=== PATIENT | female | born 1940 | race Caucasian/White ===

== ENCOUNTER 2020-03-05 13:32 | Outpatient (CLI) | payer MEDICARE, SELFPAY ==
--- NOTE | 2020-03-05 13:40 | MM_ITS ---
WS: [id number] BILATERAL DIGITAL SCREENING MAMMOGRAPHY WITH CAD CLINICAL INFORMATION: SCREENING HISTORY: Screening mammogram. No current complaints. COMPARISON: TECHNIQUE: Bilateral CC and MLO views. FINDINGS: Scattered fibroglandular densities bilaterally. No suspicious focal mass, asymmetry, calcifications, or architectural distortion. No evidence of malignancy. Vascular calcification. Stable asymmetric yesy ast tissue upper outer right breast. MM/[id number] IMPRESSION: BI-RADS: 2-Benign FOLLOW UP: 1 Year Follow-up Recommend return to annual screening mammography.
== END 2020-03-05 13:33 | disposition home or self-care (01) ==
LOC: RADSHAW 13:36
PROVIDERS: PCP Family Medicine; Visit Provider Family Medicine
DX: Z12.31 Encounter for screening mammogram for malignant neoplasm of breast (principal)
CPT/HCPCS: 77067

== ENCOUNTER 2020-10-16 09:35 | Outpatient (CLI) | payer MEDICARE, SELFPAY ==
--- NOTE | 2020-10-16 09:45 | XR_ITS ---
WS: [id number] CHEST 2 VIEWS HISTORY: ACUTE LOWER RESPIRATORY TRACT INFECTION COMPARISON: 01/26/2019 Lungs: Hyperinflated lungs. No pneumonia. Normal pulmonary vasculature. No pleural effusions. Minimal chronic appearing atelectasis at the LEFT lung base. Cardiac size: Normal. Mediastinum/Aorta: Mild atherosclerosis aorta. Bones: Prior RIGHT humeral head replacement. Severe degenerative changes at the LEFT glenohumeral alka nt. Thoracolumbar scoliosis and osteopenia. XR/XR chest 2V* [id number] IMPRESSION: Chronic emphysema with no pneumonia. Mild subsegmental atelectasis LEFT lung base.
== END 2020-10-16 09:36 | disposition home or self-care (01) ==
PROVIDERS: PCP Family Medicine; Visit Provider Family Medicine
DX: J22 Unspecified acute lower respiratory infection (principal); J43.9 Emphysema, unspecified; J98.11 Atelectasis
CPT/HCPCS: 71046

== ENCOUNTER 2021-03-12 08:12 | Outpatient (CLI) | payer MEDICARE, SELFPAY ==
--- NOTE | 2021-03-12 08:18 | MM_ITS ---
WS: [id number] BILATERAL SCREENING DIGITAL MAMMOGRAM WITH CAD HISTORY: SCREENING COMPARISON: 03/05/2020, 08/08/2018 and 06/21/2017 Bilateral CC and MLO views submitted. Computer aided detection analyzed. Breast composition: There are scattered areas of fibroglandular density. No suspicious masses, microc alcifications or architectural distortion. Scattered asymmetries in the RIGHT subareolar and RIGHT up per outer quadrant and in the LEFT subareolar locations. Stable over multiple prior years. MM/[place] [id number] IMPRESSION: BI-RADS: 2-Benign FOLLOW UP: 1 Year Follow-up
== END 2021-03-12 08:13 | disposition home or self-care (01) ==
LOC: RADSHAW 08:16
PROVIDERS: PCP Family Medicine; Visit Provider Family Medicine
DX: Z12.31 Encounter for screening mammogram for malignant neoplasm of breast (principal)
CPT/HCPCS: 77067

== ENCOUNTER → 2021-11-10 08:17 | Outpatient (BNVA) | payer MEDICARE, SELFPAY | PROVIDERS: PCP Family Medicine; Visit Provider Family Medicine | DX: R73.9 Hyperglycemia, unspecified (principal); J84.9 Interstitial pulmonary disease, unspecified; R06.2 Wheezing; M10.9 Gout, unspecified; E03.9 Hypothyroidism, unspecified | CPT/HCPCS: 80053; 80061; 83036; 84443; 85025 ==

== ENCOUNTER 2022-04-12 13:16 | Outpatient (CLI) | payer MEDICARE, SELFPAY ==
--- NOTE | 2022-04-12 13:24 | MM_ITS ---
WS: [id number] VIEWS: MLO and CC views both breasts. 3D digital tomosynthesis is also included in this exam. Comparison made with prior exam of 04/09/2015, 04/22/2016, 06/21/2017, 03/05/2020, 03/12/2021.. Findings: There was no sign of mass, architectural distortion or suspicious calcification in either breast. Sc attered fibroglandular densities MM/[place] [id number] Impression: BI-RADS: 2-Benign FOLLOW-UP: 1 Year Follow-up This mammogram was also analyzed by the Computer Aided Detection System R2 Imag e Quick Print Operator.
== END 2022-04-12 13:17 | disposition home or self-care (01) ==
LOC: RAD 13:17
PROVIDERS: PCP Family Medicine; Visit Provider Family Medicine
DX: Z12.31 Encounter for screening mammogram for malignant neoplasm of breast (principal)
CPT/HCPCS: 77063; 77067

== ENCOUNTER → 2022-05-21 08:04 | Outpatient (BNVA) | payer BC, SELFPAY | PROVIDERS: PCP Family Medicine; Visit Provider Family Medicine | DX: Z00.00 Encounter for general adult medical examination without abnormal findings (principal); E03.9 Hypothyroidism, unspecified | CPT/HCPCS: 80053; 80061; 83036; 84443; 85025 ==

== ENCOUNTER → 2022-08-26 10:52 | Outpatient (BNVA) | payer BC, SELFPAY | PROVIDERS: PCP Family Medicine; Visit Provider Family Medicine | DX: E03.9 Hypothyroidism, unspecified (principal); D64.9 Anemia, unspecified; E55.9 Vitamin D deficiency, unspecified | CPT/HCPCS: 82306; 84443; 85025 ==

== ENCOUNTER 2023-01-12 05:58 | Day surgery (SDC) | payer MEDICARE, SELFPAY ==
[2023-01-10 13:40] VITALS: BMI 22.3
[2023-01-12 06:32] VITALS: BP 144/69; PULSE 67; RESP 18; TEMP 36.5; O2SAT 95; BMI 22.3
[2023-01-12] MEDS: sodium chloride 0.9% 1,000 ML 30 ML IV (06:39)
--- NOTE | 2023-01-12 06:51 | P.ANESASSM_ITS ---
Pre-Anesthetic Assessment Height/Weight: Height 1.63 m Weight 58.967 kg Temp Pulse Resp BP Pulse Ox O2 Del Method 97.7 F 67 18 144/69 95 Room Air 01/12/23 06:32 01/12/23 06:32 01/12/23 06:32 01/12/23 06:32 01/12/23 06:32 01/12/23 06:32 Preop Diagnosis: Family history of malignant neoplasm Operation Date: 01/12/23 07:15 Proposed Procedures p Colonoscopy 39475,Z80.0,Z86.010(Not Applicable) - Alex Fleming DO Familial anesthetic complications: none Was Beta Bowen taken within 24 hours: N/A Was Clonidine taken within 24 hours: N/A Last intake: Intake Last Liquid Date 01/11/23 Last Liquid Time 21:00 Last Solid Date 01/10/23 Last Solid Time 17:00 Social No alcohol and No tobacco Exam alert, oriented x 3, clear to auscultation bilaterally and regular rate & rhythm Airway Submandibular: within normal limits Cervical ROM: within normal limits Mallampati: Class II Dentition: full Pulmonary Shortness of Breath uses inhaler denies asthma or COPD prone to getting pneumonia per patient. CV/HEM None reported None reported Hepatic None reported GI Gastroesophageal Reflux Disease (controlled) Metabolic Thyroid Disease [facility] None reported Neuropsych None reported Anesthetic Plan ASA status: 2 Anesthesia: MAC Medications/Allergies Home Medications Medication Instructions Recorded Confirmed Last Taken Type albuterol sulfate 90 mcg/actuation 2 puff inhalation Q6H PRN 06/10/22 01/10/23 01/10/23 Rx aerosol inhaler shortness of breath or wheezing #8.5 grams famotidine 20 mg tablet 20 mg PO PRN PRN .indigestion 08/26/22 01/10/23 1 Week Ago History ~01/03/23 temazepam 30 mg capsule 30 mg PO .qhs PRN sleep #30 caps 08/26/22 01/10/23 Unknown Rx levothyroxine 88 mcg tablet See Rx Instructions .Route 11/01/22 01/10/23 01/10/23 Rx (Synthroid) .COMPLEX #90 tabs coenzyme Q10 100 mg capsule 100 mg PO DAILY 01/10/23 01/10/23 01/10/23 History (CoQ-10) vxdngocw-jwj-zywew ac 400 1 tab PO DAILY 01/10/23 01/10/23 01/10/23 History mcg-calcium carb 500 mg-vit K1 20 mcg tablet (Women's 50 Plus Daily Formula) udbfmna-uwmu-rgmgk-oreg-capryl 1 cap PO DAILY 01/10/23 01/10/23 01/10/23 History Allergies Allergy/AdvReac Type Severity Reaction Status Date / Time sulfur dioxide Allergy Mild rash Verified 12/07/22 09:37 Current Medications Generic Name Dose Route Start Last Admin Trade Name Angusq PRN Reason Stop Dose Admin Sodium Chloride 1,000 mls @ 30 mls/hr 01/12/23 06:15 01/12/23 06:39 Sodium Chloride 0.9% IV 01/13/23 06:14 30 mls/hr .Q24H CAROL Administration PFSH Anesthesia Medical History (Updated 12/07/22 @ 10:42 by Alex Fleming DO) Chronic lung disease Family history of colon cancer History of colon polyps History of colon polyps Hypothyroidism Surgical History (Updated 12/07/22 @ 10:42 by Alex Fleming DO) History of cervical spinal surgery History of hemorrhoidectomy History of right shoulder replacement History of total hysterectomy with bilateral salpingo-oophorectomy (BSO) History of vein stripping Hx of colonoscopy at least 5 years Family History Mother Cancer breast Stroke Sister Cancer colon, breast Brother Diabetes Social History Smoking and tobacco status: never smoked Alcohol intake: never Substance/Drug Use: never Lives independently: Yes Household members: none Marital status: / Number of children: 5 Current occupational status: retired 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
--- NOTE | 2023-01-12 07:22 | P.HP_ITS ---
Providers/Chief Complaint Primary Care Provider: Karuna Rock MD Chief Complaint: Z80.0, Z86.010 History of Present Illness Gisela Colorado is a 82 year old female Review of Systems General: Reports: 10 or more systems reviewed and unremarkable except in HPI and below Medications/Allergies Home Medications Medication Instructions Recorded Confirmed Last Taken Type albuterol sulfate 90 mcg/actuation 2 puff inhalation Q6H PRN 06/10/22 01/10/23 01/10/23 Rx aerosol inhaler shortness of breath or wheezing #8.5 grams famotidine 20 mg tablet 20 mg PO PRN PRN .indigestion 08/26/22 01/10/23 1 Week Ago History ~01/03/23 temazepam 30 mg capsule 30 mg PO .qhs PRN sleep #30 caps 08/26/22 01/10/23 Unknown Rx levothyroxine 88 mcg tablet See Rx Instructions .Route 11/01/22 01/10/23 01/10/23 Rx (Synthroid) .COMPLEX #90 tabs coenzyme Q10 100 mg capsule 100 mg PO DAILY 01/10/23 01/10/23 01/10/23 History (CoQ-10) xfsxfnox-qsx-eurzg ac 400 1 tab PO DAILY 01/10/23 01/10/23 01/10/23 History mcg-calcium carb 500 mg-vit K1 20 mcg tablet (Women's 50 Plus Daily Formula) dbhedek-acem-nbcws-oreg-capryl 1 cap PO DAILY 01/10/23 01/10/23 01/10/23 History Allergies Allergy/AdvReac Type Severity Reaction Status Date / Time sulfur dioxide Allergy Mild rash Verified 12/07/22 09:37 PFSH Acute PFSH: Medical History Chronic lung disease Family history of colon cancer History of colon polyps History of colon polyps Hypothyroidism Surgical History History of cervical spinal surgery History of hemorrhoidectomy History of right shoulder replacement History of total hysterectomy with bilateral salpingo-oophorectomy (BSO) History of vein stripping Hx of colonoscopy at least 5 years Family History Mother Cancer breast Stroke Sister Cancer colon, breast Brother Diabetes Social History Smoking and tobacco status: never smoked Alcohol intake: never Substance/Drug Use: never Lives independently: Yes Household members: none Marital status: / Number of children: 5 Current occupational status: retired 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[employer] 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, 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0 History of colon polyps Z86.010
[2023-01-12 07:53] VITALS: BP 141/100; PULSE 72; RESP 16; TEMP 36.6; O2SAT 97
[2023-01-12 08:10] VITALS: BP 152/89; PULSE 85; RESP 18; O2SAT 95
== END 2023-01-12 08:21 | disposition home or self-care (01) ==
PROVIDERS: PCP Family Medicine; Visit Provider Surgery
PROC: 0DJD8ZZ Inspection of Lower Intestinal Tract, Via Natural or Artificial Opening Endoscopic (ICD-10-PCS; CPT 45378; principal; 2023-01-12 07:15)
DX: Z86.010 Personal history of colon polyps (principal); Z80.0 Family history of malignant neoplasm of digestive organs; D12.8 Benign neoplasm of rectum; K57.30 Diverticulosis of large intestine without perforation or abscess without bleeding; K21.9 Gastro-esophageal reflux disease without esophagitis
CPT/HCPCS: 45385; 88305; J2704; J3490; J7030

== ENCOUNTER → 2023-01-25 11:21 | Outpatient (BNVA) | payer MEDICARE, SELFPAY | PROVIDERS: PCP Family Medicine; Visit Provider Surgery | DX: Z09 Encounter for follow-up examination after completed treatment for conditions other than malignant neoplasm (principal); Z86.010 Personal history of colon polyps; K59.00 Constipation, unspecified | CPT/HCPCS: 99213 ==

== ENCOUNTER → 2023-04-28 08:27 | Outpatient (BNVA) | payer MEDICARE, SELFPAY | PROVIDERS: PCP Family Medicine; Visit Provider Family Medicine | DX: D64.9 Anemia, unspecified (principal); Z00.00 Encounter for general adult medical examination without abnormal findings; E78.5 Hyperlipidemia, unspecified; Z78.0 Asymptomatic menopausal state; M85.80 Other specified disorders of bone density and structure, unspecified site; E03.9 Hypothyroidism, unspecified | CPT/HCPCS: 80053; 80061; 85025 ==

== ENCOUNTER 2023-05-19 13:16 | Outpatient (CLI) | payer MEDICARE, SELFPAY ==
--- NOTE | 2023-05-19 13:20 | XR_ITS ---
WS: [id number] SCREENING DEXA SCAN [facility] CLINICAL INFORMATION: osteopenia f/u COMPARISON: 2013 FINDINGS: The L2-L4 bone mineral density measures 1.35. This corresponds to a T score score of 1.3 and Z score of 3.4. Left femoral neck bone mineral density measures 0.867 g/cm2. This corresponds to a T score of -1.1 an d Z score of 1.2. Right femoral neck bone mineral density measures 0.817 g/cm2. This corresponds to a T score -1.5of an d Z score of 0.8. Mean femoral neck bone mineral density measures 0.842 g/cm2. This corresponds to a T score of -1.3 an d Z score of 1.0. IMPRESSION: Normal bone mineralization lumbar spine. Osteopenia femoral necks. Patient's FRAX calculated 10 year probability for major osteoporotic fracture is 33.8% and osteoporot ic hip fracture is 23.6%. Bone mineral density lumbar spine increased 12.4% Bone mineral density femoral necks decreased -5.4%
--- NOTE | 2023-05-19 13:20 | MM_ITS ---
WS: [id number] BILATERAL SCREENING DIGITAL TOMOSYNTHESIS MAMMOGRAM WITH CAD HISTORY: breast cancer screening COMPARISON: 04/12/2022, 08/08/2018, 03/05/2020 Bilateral CC and MLO views with tomosynthesis and synthetic mammography submitted. Computer aided det ection analyzed. Breast composition: There are scattered areas of fibroglandular density. No suspicious masses, microc alcifications or architectural distortion. Scattered asymmetries upper outer quadrant RIGHT breast an d subareolar LEFT breast. These asymmetries have been present on multiple prior studies. No new suspi cious mass or calcification. IMPRESSION: MM/[place] [id number] BI-RADS: 2-Benign FOLLOW UP: 1 Year Follow-up
== END 2023-05-19 13:17 | disposition home or self-care (01) ==
PROVIDERS: PCP Family Medicine; Visit Provider Family Medicine
DX: Z12.31 Encounter for screening mammogram for malignant neoplasm of breast (principal); R92.323 Mammographic fibroglandular density, bilateral breasts; N64.89 Other specified disorders of breast; Z13.820 Encounter for screening for osteoporosis; Z78.0 Asymptomatic menopausal state; M85.80 Other specified disorders of bone density and structure, unspecified site; M85.852 Other specified disorders of bone density and structure, left thigh; M85.851 Other specified disorders of bone density and structure, right thigh
CPT/HCPCS: 77063; 77067; 77080

== ENCOUNTER 2024-01-16 08:34 | Emergency (ER) | payer MEDICARE, SELFPAY ==
[2024-01-16 08:39] VITALS: PULSE 83; RESP 18; O2SAT 98; BMI 22.3
--- NOTE | 2024-01-16 09:34 | W.ED.WOUNDLC ---
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 She did not lose consciousness she did strike her head she has a large avulsion type flap on the left mandaeism. She is unsure of when her last tetanus shot was. She has no visual changes there is no loss consciousness no nausea vomiting she denies any other injury. Associated symptoms: Denies chills or fever(s) Related Data Home Medications Medication Instructions Recorded Confirmed famotidine 20 mg tablet 20 mg PO PRN PRN .indigestion 08/26/22 01/16/24 coenzyme Q10 100 mg capsule 100 mg PO DAILY 01/10/23 01/16/24 (CoQ-10) rkwvbotn-vih-bbxpb ac 400 1 tab PO DAILY 01/10/23 01/16/24 mcg-calcium carb 500 mg-vit K1 20 mcg tablet (Women's 50 Plus Daily Formula) cirssy (Zingiber officinalis) 250 250 mg PO DAILY 01/16/24 01/16/24 mg capsule red yeast rice 600 mg PO DAILY 01/16/24 01/16/24 turmeric 500 mg-black pepper 1 cap PO DAILY 01/16/24 01/16/24 extract 3 mg capsule Previous Rx's Medication Instructions Recorded temazepam 30 mg capsule 30 mg PO .qhs PRN sleep #30 caps 08/26/22 albuterol sulfate 90 mcg/actuation 2 puff inhalation Q6H PRN 05/24/23 aerosol inhaler shortness of breath or wheezing #8.5 grams alendronate 70 mg tablet (Fosamax) 70 mg PO .once a week #12 tabs 06/06/23 miscellaneous medical supply #1 ea 06/06/23 (Blood Pressure Cuff) levothyroxine 88 mcg tablet See Rx Instructions .Route 11/08/23 .COMPLEX #90 tabs Allergies Allergy/AdvReac Type Severity Reaction Status Date / Time sulfur dioxide Allergy Mild rash Verified 06/06/23 13:33 Review of Systems Const: Denies: fever(s) or chills Card: Denies: chest pain Resp: Denies: dyspnea GI: Denies: abdominal pain : Denies: dysuria, urinary frequency or urinary urgency Musc: Denies: neck pain or back pain Skin/Breast: Denies: rash PFSH ED PFSH: Medical History History of colon polyps Family history of colon cancer History of colon polyps Hypothyroidism Chronic lung disease Surgical History Hx of colonoscopy at least 5 years History of vein stripping History of total hysterectomy with bilateral salpingo-oophorectomy (BSO) History of cervical spinal surgery History of hemorrhoidectomy History of right shoulder replacement Family History Mother Cancer breast Stroke Sister Cancer colon, breast Brother Diabetes Social History Smoking and tobacco/nicotine status: never used tobacco/nicotine Alcohol intake: never Substance/Drug Use: never Lives independently: Yes Household members: none Marital status: / Number of children: 5 Current occupational status: retired 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 No active bleeding at the laceration edge of the orbit intact extraocular moods intact no focal neurologic deficits are noted. Resp: COMMON NORMALS: normal respiratory effort, No retractions, No use of accessory muscles and clear to auscultation bilaterally AUSCULTATION: clear to auscultation bilaterally Cardio: COMMON NORMALS: regular rate, regular rhythm and No murmurs present (Cardio) RATE: regular rate RHYTHM: regular rhythm GI: COMMON NORMALS: Soft to palpation and No hepatosplenomegaly present AUSCULTATION: Yes normoactive bowel sounds PALPATION: Yes Soft to palpation, No Tenderness to palpation present (GI), No Guarding due to palpation present (GI) and Yes No hepatosplenomegaly present Extremity: COMMON NORMALS: normal to inspection, capillary refill normal, no clubbing, cyanosis or edema, no calf tenderness and no pedal edema Neuro: SENSORIUM/ORIENTATION: Yes oriented to person, Yes oriented to place and Yes oriented to time Skin: COMMON NORMALS: no rashes or lesions noted GENERAL SKIN EXAM: no rashes or lesions noted Course Vital Signs: Vital signs: Vital Signs Pulse Rate 73 01/16/24 11:47 Respiratory Rate 16 01/16/24 11:47 Blood Pressure 179/87 01/16/24 11:47 Pulse Oximetry 97 01/16/24 11:47 Oxygen Delivery Me thod Room Air 01/16/24 08:39 MDM - Wound/Laceration Medical Decision Making Facial laceration repaired by midlevel. CT head cervical spine and facial bones all negative for acute fracture tetanus updated Medical Records I reviewed the patient's medical records. Lab Data I reviewed the patient's lab results. 01/16/24 09:51 01/16/24 09:51 Radiology Impressions Cervical Spine CT 01/16/24 09:39 IMPRESSION: 1. No acute fracture or subluxation. 2. Anterior fusion C4 through C7 with spondylotic changes as above. Face CT 01/16/24 09:39 IMPRESSION: No acute fracture. No significant soft tissue hematoma. Head CT 01/16/24 09:39 IMPRESSION: No acute intracranial abnormality. Laboratory Results WBC 6.38 10^3/uL (3.29-11.43) 01/16/24 09:51 RBC 4.25 10^6/uL (3.85-5.65) 01/16/24 09:51 Hgb 12.90 g/dL (11.27-16.99) 01/16/24 09:51 Hct 39.4 % (36-47) 01/16/24 09:51 MCV 92.7 fl (85-98) 01/16/24 09:51 MCH 30.4 pg (27-33) 01/16/24 09:51 MCHC 32.7 g/dL (30-55) 01/16/24 09:51 RDW 13.7 % (12.1-15.1) 01/16/24 09:51 Plt Count 219 10^3/cmm (157-399) 01/16/24 09:51 MPV 10.7 fL (7.4-10.4) H 01/16/24 09:51 Neut % (Auto) 60.6 % 01/16/24 09:51 Lymph % (Auto) 29.9 % 01/16/24 09:51 Angelina % (Auto) 8.3 % 01/16/24 09:51 Eos % (Auto) 0.6 % 01/16/24 09:51 Baso % (Auto) 0.3 % 01/16/24 09:51 Neut # (Auto) 3.86 10^3/uL (1.8-7.7) 01/16/24 09:51 Lymph # (Auto) 1.9 10^3/uL (0.8-4.8) 01/16/24 09:51 Angelina # (Auto) 0.5 10^3/uL (0.2-0.9) 01/16/24 09:51 Eos # (Auto) 0.0 10^3/uL (0.0-0.8) 01/16/24 09:51 Baso # (Auto) 0.0 10^3/uL (0.0-0.1) 01/16/24 09:51 Nucleated RBC % (auto) 0 % 01/16/24 09:51 Nucleated RBCs # 0.0 /100WBC 01/16/24 09:51 Sodium 137 mmol/L (136-145) 01/16/24 09:51 Potassium 4.4 mmol/L (3.5-5.1) 01/16/24 09:51 Chloride 101 mmol/L (98-107) 01/16/24 09:51 Carbon Dioxide 29 mmol/L (22-29) 01/16/24 09:51 Anion Gap 11.4 (5-19) 01/16/24 09:51 BUN 13 mg/dL (8-23) 01/16/24 09:51 Creatinine 0.6 mg/dL (0.5-0.9) 01/16/24 09:51 GFR Calculation Not Reportable 01/16/24 09:51 Glucose 93 mg/dL (65-115) 01/16/24 09:51 Calculated Osmolality 284 mOsm/kg (285-295) L 01/16/24 09:51 Calcium 9.4 mg/dL (8.5-10.5) 01/16/24 09:51 Total Bilirubin 0.4 mg/dL (0.15-1.2) 01/16/24 09:51 AST 31 U/L (0-32) 01/16/24 09:51 ALT 17 U/L (0-33) 01/16/24 09:51 Alkaline Phosphatase 68 U/L (35-105) 01/16/24 09:51 Total Protein 7.1 g/dL (6.6-8.7) 01/16/24 09:51 Albumin 4.2 g/dL (3.5-5.2) 01/16/24 09:51 Globulin 2.9 g/dL (1.3-4.6) 01/16/24 09:51 All radiology interpretation(s) finalized by discharge Discharge Plan Discharge Patient Disposition: Home Clinical Impression: Laceration, Fall Condition: Stable Prescriptions: No Action famotidine 20 mg tablet 20 mg PO PRN PRN (Reason: .indigestion) temazepam 30 mg capsule 30 mg PO .qhs PRN (Reason: sleep) Qty: 30 0RF alendronate [Fosamax] 70 mg tablet 70 mg PO .once a week Qty: 12 3RF (DME) Blood Pressure Cuff Misc See Rx Instructions .Route Qty: 1 0RF Rx Instructions: As directed albuterol sulfate 90 mcg/actuation HFA aerosol inhaler 2 puff inhalation Q6H PRN (Reason: shortness of breath or wheezing) Qty: 8.5 11RF levothyroxine 88 mcg tablet See Rx Instructions .ROUTE .COMPLEX Qty: 90 0RF Dose Instruction: TAKE 1 TABLET BY MOUTH DAILY Rx Instructions: TAKE 1 TABLET BY MOUTH DAILY coenzyme Q10 [CoQ-10] 100 mg Capsule 100 mg PO DAILY Women's 50 Plus Daily Formula 400 mcg-500 mg calcium-20 mcg Tablet 1 tab PO DAILY crissy (Zingiber officinalis) 250 mg Capsule 250 mg PO DAILY turmeric-turmeric ext-pepper 500-3 mg Capsule 1 cap PO DAILY red yeast rice 600 mg PO DAILY Discharge Orders: Discharge ED (Routine); Ordered 01/16/24 Ordered By: Brennen Valentin Referrals: Karuna Rock MD [Primary Care Provider] - Discharge Diet: Usual diet Discharge Activity: Increase activity as tolerated Patient Instructions: Opioid Safety, Pain Management Activity Restrictions/Additional Instructions: Thank you for choosing [facility] for your healthcare needs today. It is very important that you follow up as instructed or that you return to the Emergency Department should you have concerns or if your condition changes or worsens in any way. You were seen in the emergency room with complaints of a laceration after a fall scans of your head and neck did not show any acute fracture or bleeding. Your tetanus was updated in the emergency room. The wound was sutured. Recommend that the sutures to be removed by your doctor in 5 to 7 days. Apply topical antibiotic ointment and a Vaseline base once daily until the sutures are removed Coding Level of Care Code ED Security Rep for Chg Fwd Documented by User: SOFY Chacon 01/16/24 10:42 HPI - Wound/Laceration General: Chief Complaint: Wound/Laceration Stated Complaint: Fall, face injury Time Seen by Provider: 01/16/24 08:39 Related Data Home Medications Medication Instructions Recorded Confirmed famotidine 20 mg tablet 20 mg PO PRN PRN .indigestion 08/26/22 01/16/24 coenzyme Q10 100 mg capsule 100 mg PO DAILY 01/10/23 01/16/24 (CoQ-10) vfgclozx-vlq-ptqbh ac 400 1 tab PO DAILY 01/10/23 01/16/24 mcg-calcium carb 500 mg-vit K1 20 mcg tablet (Women's 50 Plus Daily Formula) crissy (Zingiber officinalis) 250 250 mg PO DAILY 01/16/24 01/16/24 mg capsule red yeast rice 600 mg PO DAILY 01/16/24 01/16/24 turmeric 500 mg-black pepper 1 cap PO DAILY 01/16/24 01/16/24 extract 3 mg capsule Previous Rx's Medication Instructions Recorded temazepam 30 mg capsule 30 mg PO .qhs PRN sleep #30 caps 08/26/22 albuterol sulfate 90 mcg/actuation 2 puff inhalation Q6H PRN 05/24/23 aerosol inhaler shortness of breath or wheezing #8.5 grams alendronate 70 mg tablet (Fosamax) 70 mg PO .once a week #12 tabs 06/06/23 miscellaneous medical supply #1 ea 06/06/23 (Blood Pressure Cuff) levothyroxine 88 mcg tablet See Rx Instructions .Route 11/08/23 .COMPLEX #90 tabs Allergies Allergy/AdvReac Type Severity Reaction Status Date / Time sulfur dioxide Allergy Mild rash Verified 06/06/23 13:33 [facility] ED PFSH: Medical History History of colon polyps Family history of colon cancer History of colon polyps Hypothyroidism Chronic lung disease Surgical History Hx of colonoscopy at least 5 years History of vein stripping History of total hysterectomy with bilateral salpingo-oophorectomy (BSO) History of cervical spinal surgery History of hemorrhoidectomy History of right shoulder replacement Family History Mother Cancer breast Stroke Sister Cancer colon, breast Brother Diabetes Social History Smoking and tobacco/nicotine status: never used tobacco/nicotine Alcohol intake: never Substance/Drug Use: never Lives independently: Yes Household members: none Marital status: / Number of children: 5 Current occupational status: retired 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 activites: volunteer work and other Leisure activities details: gardening Stacy/Restoration: Druze Procedures Laceration Laceration 1: Site: face Side (If applicable): left Size (cm): 4.0 Description: flap and irregular Depth: involves muscle layer Local Anesthetic: lidocaine 1% and with epi Amount of anesthesia used (mL): 2.0 Pre-repair: wound explored and irrigated extensively Skin layer closed with: nylon Size (cm): 3-0 and 6-0 Number of sutures: 9 Technique: simple, interrupted and running Subcutaneous layer closed with: vicryl Size: 4-0 Number of sutures: 1 Technique: simple, interrupted Course ED course: I was consulted by Dr. Valentin to repair patient's facial laceration. Wound was copiously irrigated and repaired as documented. Other than laceration repair, I did not actively participate in patient's care. ES Vital Signs: Vital signs: Vital Signs Pulse Rate 73 01/16/24 11:47 Respiratory Rate 16 01/16/24 11:47 Blood Pressure 179/87 01/16/24 11:47 Pulse Oximetry 97 01/16/24 11:47 Oxygen Delivery Me thod Room Air 01/16/24 08:39 MDM - Wound/Laceration Lab Data 01/16/24 09:51 01/16/24 09:51 Radiology Impressions Cervical Spine CT 01/16/24 09:39 IMPRESSION: 1. No acute fracture or subluxation. 2. Anterior fusion C4 through C7 with spondylotic changes as above. Face CT 01/16/24 09:39 IMPRESSION: No acute fracture. No significant soft tissue hematoma. Head CT 01/16/24 09:39 IMPRESSION: No acute intracranial abnormality. Laboratory Results WBC 6.38 10^3/uL (3.29-11.43) 01/16/24 09:51 RBC 4.25 10^6/uL (3.85-5.65) 01/16/24 09:51 Hgb 12.90 g/dL (11.27-16.99) 01/16/24 09:51 Hct 39.4 % (36-47) 01/16/24 09:51 MCV 92.7 fl (85-98) 01/16/24 09:51 MCH 30.4 pg (27-33) 01/16/24 09:51 MCHC 32.7 g/dL (30-55) 01/16/24 09:51 RDW 13.7 % (12.1-15.1) 01/16/24 09:51 Plt Count 219 10^3/cmm (157-399) 01/16/24 09:51 MPV 10.7 fL (7.4-10.4) H 01/16/24 09:51 Neut % (Auto) 60.6 % 01/16/24 09:51 Lymph % (Auto) 29.9 % 01/16/24 09:51 Angelina % (Auto) 8.3 % 01/16/24 09:51 Eos % (Auto) 0.6 % 01/16/24 09:51 Baso % (Auto) 0.3 % 01/16/24 09:51 Neut # (Auto) 3.86 10^3/uL (1.8-7.7) 01/16/24 09:51 Lymph # (Auto) 1.9 10^3/uL (0.8-4.8) 01/16/24 09:51 Angelina # (Auto) 0.5 10^3/uL (0.2-0.9) 01/16/24 09:51 Eos # (Auto) 0.0 10^3/uL (0.0-0.8) 01/16/24 09:51 Baso # (Auto) 0.0 10^3/uL (0.0-0.1) 01/16/24 09:51 Nucleated RBC % (auto) 0 % 01/16/24 09:51 Nucleated RBCs # 0.0 /100WBC 01/16/24 09:51 Sodium 137 mmol/L (136-145) 01/16/24 09:51 Potassium 4.4 mmol/L (3.5-5.1) 01/16/24 09:51 Chloride 101 mmol/L (98-107) 01/16/24 09:51 Carbon Dioxide 29 mmol/L (22-29) 01/16/24 09:51 Anion Gap 11.4 (5-19) 01/16/24 09:51 BUN 13 mg/dL (8-23) 01/16/24 09:51 Creatinine 0.6 mg/dL (0.5-0.9) 01/16/24 09:51 GFR Calculation Not Reportable 01/16/24 09:51 Glucose 93 mg/dL (65-115) 01/16/24 09:51 Calculated Osmolality 284 mOsm/kg (285-295) L 01/16/24 09:51 Calcium 9.4 mg/dL (8.5-10.5) 01/16/24 09:51 Total Bilirubin 0.4 mg/dL (0.15-1.2) 01/16/24 09:51 AST 31 U/L (0-32) 01/16/24 09:51 ALT 17 U/L (0-33) 01/16/24 09:51 Alkaline Phosphatase 68 U/L (35-105) 01/16/24 09:51 Total Protein 7.1 g/dL (6.6-8.7) 01/16/24 09:51 Albumin 4.2 g/dL (3.5-5.2) 01/16/24 09:51 Globulin 2.9 g/dL (1.3-4.6) 01/16/24 09:51 Discharge Plan Discharge Patient Disposition: Home Clinical Impression: Laceration, Fall Condition: Stable Prescriptions: No Action famotidine 20 mg tablet 20 mg PO PRN PRN (Reason: .indigestion) temazepam 30 mg capsule 30 mg PO .qhs PRN (Reason: sleep) Qty: 30 0RF alendronate [Fosamax] 70 mg tablet 70 mg PO .once a week Qty: 12 3RF (DME) Blood Pressure Cuff Misc See Rx Instructions .Route Qty: 1 0RF Rx Instructions: As directed albuterol sulfate 90 mcg/actuation HFA aerosol inhaler 2 puff inhalation Q6H PRN (Reason: shortness of breath or wheezing) Qty: 8.5 11RF levothyroxine 88 mcg tablet See Rx Instructions .ROUTE .COMPLEX Qty: 90 0RF Dose Instruction: TAKE 1 TABLET BY MOUTH DAILY Rx Instructions: TAKE 1 TABLET BY MOUTH DAILY coenzyme Q10 [CoQ-10] 100 mg Capsule 100 mg PO DAILY Women's 50 Plus Daily Formula 400 mcg-500 mg calcium-20 mcg Tablet 1 tab PO DAILY crissy (Zingiber officinalis) 250 mg Capsule 250 mg PO DAILY turmeric-turmeric ext-pepper 500-3 mg Capsule 1 cap PO DAILY red yeast rice 600 mg PO DAILY Discharge Orders: Discharge ED (Routine); Ordered 01/16/24 Ordered By: Brennen Valentin Referrals: Karuna Rock MD [Primary Care Provider] - Discharge Diet: Usual diet Discharge Activity: Increase activity as tolerated Patient Instructions: Opioid Safety, Pain Management Activity Restrictions/Additional Instructions: Thank you for choosing [facility] for your healthcare needs today. It is very important that you follow up as instructed or that you return to the Emergency Department should you have concerns or if your condition changes or worsens in any way. You were seen in the emergency room with complaints of a laceration after a fall scans of your head and neck did not show any acute fracture or bleeding. Your tetanus was updated in the emergency room. The wound was sutured. Recommend that the sutures to be removed by your doctor in 5 to 7 days. Apply topical antibiotic ointment and a Vaseline base once daily until the sutures are removed Coding Level of Care Code ED Security Rep for Dash Klein
--- NOTE | 2024-01-16 09:39 | CTR_ITS ---
PROCEDURE INFORMATION: Exam: CT Cervical Spine Without Contrast Exam date and time: 01/16/2024 9:54 AM Age: 83 years old Clinical indication: Injury or trauma; Fall; Work related TECHNIQUE: Imaging protocol: Computed tomography of the cervical spine without contrast. Radiation optimization: All CT scans at this facility use at least one of these dose optimization techniques: automated exposure control; mA and/or kV adjustment per patient size (includes targeted exams where dose is matched to clinical indication); or iterative reconstruction. COMPARISON: CT facial bones wo con* [id number] 01/16/2024 9:54 AM RADIATION DOSE METRICS: Total DLP (mGy-cm): 937 FINDINGS: Bones: No acute fracture. No acute subluxation. Hardware anterior fusion and intervertebral plug placement at C4, C5, C6 and C7 levels. 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 Prominent cystic changes of the odontoid noted. C2-C3: Minimal disc spur complex and uncovertebral joint hypertrophy. C3-C4: Prominent disc spur complex causing mass effect on ventral thecal sac. Moderate bilateral neural foraminal narrowing. C4-C5: No significant spinal canal stenosis or neural foraminal narrowing. C5-C6: No significant spinal canal stenosis or neural foraminal narrowing. C6-C7: No significant spinal canal stenosis or neural foraminal narrowing. C7/T1: Chronic appearing minimal anterolisthesis of C7 over T1. Minimal bilateral neural foraminal narrowing. Lungs: Minimal nonspecific ground-glass densities bilaterally. Soft tissues: Carotid artery calcifications noted. No large hematoma. CT/CT cervical spin wo con* [id number] IMPRESSION: 1. No acute fracture or subluxation. 2. Anterior fusion C4 through C7 with spondylotic changes as above.
--- NOTE | 2024-01-16 09:39 | CTR_ITS ---
PROCEDURE INFORMATION: Exam: CT Maxillofacial Without Contrast Exam date and time: 01/16/2024 9:54 AM Age: 83 years old Clinical indication: Injury or trauma; Fall; Laceration; Forehead; With residual foreign body TECHNIQUE: Imaging protocol: Computed tomography of the face without contrast. Radiation optimization: All CT scans at this facility use at least one of these dose optimization techniques: automated exposure control; mA and/or kV adjustment per patient size (includes targeted exams where dose is matched to clinical indication); or iterative reconstruction. COMPARISON: CT head wo con* [id number] 01/16/2024 9:54 AM RADIATION DOSE METRICS: Total DLP (mGy-cm): 509 FINDINGS: Orbital cavities: Orbits are normal. Globes are unremarkable. Paranasal sinuses: Normal. No air-fluid levels. Bones: No acute fracture. Soft tissues: Soft tissue air in left lateral temporal/orbital area noted without significant hematoma. CT/CT facial bones wo con* [id number] IMPRESSION: No acute fracture. No significant soft tissue hematoma.
--- NOTE | 2024-01-16 09:39 | CTR_ITS ---
PROCEDURE INFORMATION: Exam: CT Head Without Contrast Exam date and time: 01/16/2024 9:54 AM Age: 83 years old Clinical indication: Injury or trauma; Fall; Abrasion; Forehead TECHNIQUE: Imaging protocol: Computed tomography of the head without contrast. Radiation optimization: All CT scans at this facility use at least one of these dose optimization techniques: automated exposure control; mA and/or kV adjustment per patient size (includes targeted exams where dose is matched to clinical indication); or iterative reconstruction. COMPARISON: CT facial bones wo con* [id number] 01/16/2024 9:54 AM RADIATION DOSE METRICS: Total DLP (mGy-cm): 1090 FINDINGS: Brain: No acute hemorrhage. Benign calcifications in basal ganglia. [id number] periventricular and deep white matter hypodensities, chronic small vessel ischemic changes. Mild diffuse volume loss. Cerebral ventricles: No ventriculomegaly. Paranasal sinuses: Visualized sinuses are unremarkable. No fluid levels. Mastoid air cells: Visualized mastoid air cells are well aerated. Bones: Unremarkable. No acute fracture. Soft tissues: Unremarkable. CT/CT head wo con* [id number] IMPRESSION: No acute intracranial abnormality.
[2024-01-16] MEDS: tetanus-diphtheria tox (adult) 0.5 mL SDV IM (09:40)
[2024-01-16 09:59] LABS: Basophils % 0.3 %; Eosinophils % 0.6 %; Hematocrit 39.4 % (36-47); Lymphocytes # 1.9 10^3/uL (0.8-4.8); Lymphocytes % 29.9 %; Mean Corpuscular HGB Conc 32.7 g/dL (30-55); Mean Corpuscular Hemoglobin 30.4 pg (27-33); Mean Corpuscular Volume 92.7 fl (85-98); Mean Platelet Volume 10.7 fL (7.4-10.4); Monocytes # 0.5 10^3/uL (0.2-0.9); Monocytes % 8.3 %; Neutrophils # 3.86 10^3/uL (1.8-7.7); Neutrophils % 60.6 %; Nucleated Red Blood Cells % 0 %; Platelet Count 219 10^3/cmm (157-399); Red Blood Count 4.25 10^6/uL (3.85-5.65); Red Cell Distribution Width 13.7 % (12.1-15.1); White Blood Count 6.38 10^3/uL (3.29-11.43)
[2024-01-16 10:21] LABS: Alanine Aminotransferase 17 U/L (0-33); Albumin Level 4.2 g/dL (3.5-5.2); Alkaline Phosphatase 68 U/L (35-105); Anion Gap 11.4 (5-19); Aspartate Amino Transferase 31 U/L (0-32); Blood Urea Nitrogen 13 mg/dL (8-23); Calcium 9.4 mg/dL (8.5-10.5); Carbon Dioxide 29 mmol/L (22-29); Chloride 101 mmol/L (98-107); Globulin 2.9 g/dL (1.3-4.6); Glucose 93 mg/dL (65-115); Osmolality Calculated 284 mOsm/kg (285-295); Potassium 4.4 mmol/L (3.5-5.1); Sodium 137 mmol/L (136-145); Total Bilirubin 0.4 mg/dL (0.15-1.2); Total Protein 7.1 g/dL (6.6-8.7)
[2024-01-16 11:47] VITALS: BP 179/87; PULSE 73; RESP 16; O2SAT 97
== END 2024-01-16 11:46 | disposition home or self-care (01) ==
PROVIDERS: Emergency Provider Family Medicine; PCP Family Medicine
DX: S01.81XA Laceration without foreign body of other part of head, initial encounter (principal); W01.0XXA Fall on same level from slipping, tripping and stumbling without subsequent striking against object, initial encounter; Z23 Encounter for immunization
CPT/HCPCS: 12052; 36415; 70450; 70486; 72125; 80053; 85025; 90471; 90714; 99284; 99291

== ENCOUNTER → 2024-02-08 08:23 | Outpatient (BNVA) | payer MEDICARE, SELFPAY | PROVIDERS: PCP Family Medicine; Visit Provider Family Medicine | DX: E03.9 Hypothyroidism, unspecified (principal); E55.9 Vitamin D deficiency, unspecified | CPT/HCPCS: 82306; 84443 ==

== ENCOUNTER → 2024-05-02 13:35 | Outpatient (BNVA) | payer MEDICARE, SELFPAY | PROVIDERS: PCP Family Medicine; Visit Provider Family Medicine | DX: E03.9 Hypothyroidism, unspecified (principal) | CPT/HCPCS: 84443 ==

== ENCOUNTER 2024-10-12 06:28 | Emergency (ER) | payer MEDICARE, SELFPAY ==
[2024-10-12 06:37] VITALS: BP 168/103; PULSE 59; RESP 18; TEMP 36.6; O2SAT 93; BMI 25.4
[2024-10-12 07:12] VITALS: BP 142/66; PULSE 60; RESP 16; O2SAT 96
--- NOTE | 2024-10-12 07:18 | XR_ITS ---
WS: [id number] Right knee, 3 views, 10/12/2024 Clinical Data: pain Comparison: None. Findings: No fractures or dislocations are seen. There is medial and lateral joint space narrowing with minimal chondral cartilage calcification. The posterior patella shows irregularity. There is a small anterior superior spur. The soft tissues are unremarkable. XR/XR knee RT 3V* [id number] Impression: Osteoarthritis of the right knee with narrowing and irregularity along with cho ndral cartilage calcification.
--- NOTE | 2024-10-12 07:22 | W.ED.EXTPRO ---
HPI - Extremity Problem General: Chief complaint: Extremity Injury, Lower Stated complaint: right knee pain Time Seen by Provider: 10/12/24 07:13 History of Present Illness: 84-year-old female who presents to the emergency room with right knee pain. She states yesterday when she was taking her trash out her knee felt like it gave out it has been sore since she is out of it improved overnight is still sore this morning so she presented to the emergency room. No direct trauma or injury. Patient has had osteoarthritis problems in the past no previous surgeries. Associated symptoms: Deny chest pain, fever(s) or rash Related Data Home Medications ?Medication ?Instructions ?Recorded ?Confirmed coenzyme Q10 100 mg capsule 100 mg PO DAILY 01/10/23 05/02/24 (CoQ-10) [id number]-qzk-dsegj ac 400 1 tab PO DAILY 01/10/23 05/02/24 mcg-calcium carb 500 mg-vit K1 20 mcg tablet (Women's 50 Plus Daily Formula) crissy (Zingiber officinalis) 250 250 mg PO DAILY 01/16/24 05/02/24 mg capsule red yeast rice 600 mg PO DAILY 01/16/24 05/02/24 turmeric 500 mg-black pepper 1 cap PO DAILY 01/16/24 05/02/24 extract 3 mg capsule famotidine 20 mg tablet 20 mg PO DAILY PRN .indigestion 05/02/24 05/02/24 Previous Rx's ?Medication ?Instructions ?Recorded albuterol sulfate 90 mcg/actuation 2 puff inhalation Q6H PRN 05/24/23 aerosol inhaler shortness of breath or wheezing #8.5 grams [employer] medical supply #1 ea 06/06/23 (Blood Pressure Cuff) alendronate 70 mg tablet (Fosamax) 70 mg PO .once a week #12 tabs 05/03/24 oxybutynin chloride 5 mg 5 mg PO DAILY #90 tabs 05/14/24 tablet,extended release 24 hr levothyroxine 75 mcg tablet 75 mcg PO DAILY #90 tabs 06/06/24 diclofenac sodium 75 mg 75 mg PO Q12H PRN pain #20 tabs 10/12/24 tablet,delayed release Allergies Allergy/AdvReac Type Severity Reaction Status Date / Time sulfur dioxide Allergy Mild rash Verified 05/02/24 13:43 Review of Systems Const: Denies: fever(s) or chills Card: Denies: chest pain Resp: Denies: dyspnea GI: Denies: abdominal pain : Denies: dysuria, urinary frequency or urinary urgency Musc: Denies: neck pain or back pain Skin/Breast: Denies: rash PFSH ED PFSH: Medical History Family history of colon cancer History of colon polyps Hypothyroidism Chronic lung disease Surgical History Hx of colonoscopy at least 5 years History of vein stripping History of total hysterectomy with bilateral salpingo-oophorectomy (BSO) History of cervical spinal surgery History of hemorrhoidectomy History of right shoulder replacement Family History Mother Cancer breast Stroke Sister Cancer colon, breast Brother Diabetes Social History Smoking and tobacco/nicotine status: never used tobacco/nicotine Alcohol intake: never Substance/Drug Use: never Lives independently: Yes Household members: none Marital status: / Number of children: 5 Current occupational status: retired 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[employer] 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[employer], [employer] Leisure activites: volunteer work and other Leisure activities details: gardening Stacy/[employer]: [employer] Physical Exam Const: COMMON NORMALS: no acute distress GENERAL APPEARANCE: cooperative and comfortable ORIENTATION/CONSCIOUSNESS: Yes awake, Yes oriented to person, Yes oriented to place and Yes oriented to time HENMT: COMMON NORMALS: normocephalic, atraumatic and hearing grossly normal bilaterally HEAD & SCALP: normocephalic and atraumatic Resp: COMMON NORMALS: normal respiratory effort, No retractions, No use of accessory muscles and clear to auscultation bilaterally AUSCULTATION: clear to auscultation bilaterally Cardio: COMMON NORMALS: regular rate, regular rhythm and No murmurs present (Cardio) RATE: regular rate RHYTHM: regular rhythm GI: COMMON NORMALS: Soft to palpation and No hepatosplenomegaly present AUSCULTATION: Yes normoactive bowel sounds PALPATION: Yes Soft to palpation, No Tenderness to palpation present (GI), No Guarding due to palpation present (GI) and Yes No hepatosplenomegaly present Extremity: COMMON NORMALS: normal to inspection, capillary refill normal, no clubbing, cyanosis or edema, no calf tenderness and no pedal edema OTHER: Examination of the right knee no ligamentous instability or laxity no joint effusion there is some fullness and palpable lysis suggestive of a Andrews's cyst. No obvious deformity no abrasion or laceration Neuro: SENSORIUM/ORIENTATION: Yes oriented to person, Yes oriented to place and Yes oriented to time Skin: COMMON NORMALS: no rashes or lesions noted GENERAL SKIN EXAM: no rashes or lesions noted Course Vital Signs: Vital signs: Vital Signs Temperature 98 F 10/12/24 06:37 Pulse Rate 63 10/12/24 09:36 Respiratory Rate 16 10/12/24 09:36 Blood Pressure 140/78 10/12/24 09:36 Pulse Oximetry 94 10/12/24 09:36 MDM - Extremity (Nontraumatic) Medical Decision Making X-ray negative. Patient feels like she cannot place weight on it. There is no sign of direct trauma. Will discharge patient home in knee immobilizer have her follow-up with orthopedics. She has a walker at home which she prefers to use while in the knee immobilizer. Offered crutches patient prefers walker. Medical Records I reviewed the patient's medical records. Lab Data I reviewed the patient's lab results. Radiology Impressions Knee X-Ray 10/12/24 07:18 Impression: Osteoarthritis of the right knee with narrowing and irregularity along with chondral cartilage calcification. All radiology interpretation(s) finalized by discharge Discharge Plan Discharge Patient Disposition: Home Clinical Impression: Osteoarthritis of right knee Condition: Stable Prescriptions: New diclofenac sodium 75 mg tablet,delayed release (DR/EC) 75 mg PO Q12H PRN (Reason: pain) Qty: 20 0RF No Action famotidine 20 mg tablet 20 mg PO DAILY PRN (Reason: .indigestion) alendronate [Fosamax] 70 mg tablet 70 mg PO .once a week Qty: 12 3RF (DME) Blood Pressure Cuff Misc See Rx Instructions .Route Qty: 1 0RF Rx Instructions: As directed albuterol sulfate 90 mcg/actuation HFA aerosol inhaler 2 puff inhalation Q6H PRN (Reason: shortness of breath or wheezing) Qty: 8.5 11RF oxybutynin chloride 5 mg tablet extended release 24hr 5 mg PO DAILY Qty: 90 2RF levothyroxine 75 mcg tablet 75 mcg PO DAILY Qty: 90 1RF coenzyme Q10 [CoQ-10] 100 mg Capsule 100 mg PO DAILY Women's 50 Plus Daily Formula 400 mcg-500 mg calcium-20 mcg Tablet 1 tab PO DAILY crissy (Zingiber officinalis) 250 mg Capsule 250 mg PO DAILY turmeric-turmeric ext-pepper 500-3 mg Capsule 1 cap PO DAILY red yeast rice 600 mg PO DAILY Discharge Orders: Discharge ED (Routine); Ordered 10/12/24 Ordered By: Brennen Valentin Referrals: Karuna Rock MD [Primary Care Provider, Family Practice] Discharge Diet: Usual diet Discharge Activity: Limit activity as instructed Patient Instructions: Opioid Safety, Pain Management Activity Restrictions/Additional Instructions: Thank you for choosing [facility] for your healthcare needs today. It is very important that you follow up as instructed or that you return to the Emergency Department should you have concerns or if your condition changes or worsens in any way. You were seen in the emergency room with complaints of right knee pain x-ray did not show any acute fractures. Recommend the long legs splint and minimal weightbearing toe-touch at most you can use a walker or crutches. manager resort will make arranges for her to follow-up with orthopedics. Print Language: Afghan Coding Level of Care Code ED [employer] Librarian for Dash Klein
[2024-10-12 09:36] VITALS: BP 140/78; PULSE 63; RESP 16; O2SAT 94
--- NOTE | 2024-10-15 09:05 | DCPLANNER ---
Message sent to Ortho for follow up- X-ray negative. Patient feels like she cannot place weight on it. There is no sign of direct trauma. Will discharge patient home in knee immobilizer have her follow-up with orthopedics. She has a walker at home which she prefers to use while in the knee immobilizer. Offered crutches patient prefers walker.
== END 2024-10-12 09:47 | disposition home or self-care (01) ==
PROVIDERS: Emergency Provider Family Medicine; PCP Family Medicine
DX: M17.11 Unilateral primary osteoarthritis, right knee (principal)
CPT/HCPCS: 73562; 99283

== ENCOUNTER → 2024-10-16 10:16 | Outpatient (BNVA) | payer MEDICARE, SELFPAY | PROVIDERS: PCP Family Medicine; Visit Provider Orthopaedic Surgery | DX: M17.11 Unilateral primary osteoarthritis, right knee (principal) | CPT/HCPCS: 73562; 99203 ==

== ENCOUNTER → 2024-11-07 13:50 | Outpatient (BNVA) | payer MEDICARE, SELFPAY | PROVIDERS: PCP Family Medicine; Visit Provider Family Medicine | DX: E03.9 Hypothyroidism, unspecified (principal); D64.9 Anemia, unspecified; M85.80 Other specified disorders of bone density and structure, unspecified site | CPT/HCPCS: 80053; 84443; 85025 ==

== ENCOUNTER → 2024-12-18 14:47 | Outpatient (BNVA) | payer MEDICARE, SELFPAY | PROVIDERS: PCP Family Medicine; Visit Provider Nurse Practitioner Family | DX: L57.8 Other skin changes due to chronic exposure to nonionizing radiation (principal); D48.5 Neoplasm of uncertain behavior of skin; L57.0 Actinic keratosis | CPT/HCPCS: 11102; 17000; 99203 ==

== ENCOUNTER → 2025-03-25 14:23 | Outpatient (BNVA) | payer MEDICARE, SELFPAY | PROVIDERS: PCP Family Medicine; Visit Provider Nurse Practitioner Family | DX: L72.0 Epidermal cyst (principal); L57.8 Other skin changes due to chronic exposure to nonionizing radiation; L81.4 Other melanin hyperpigmentation; L57.0 Actinic keratosis | CPT/HCPCS: 17000; 99213 ==